=== PATIENT | female | born 1955 | race Caucasian/White ===

== ENCOUNTER → 2018-10-18 | Day surgery (SDC) | payer OTHER ==
[~2018-10-18] MED LIST: CHOL100013 PO; CYAN10005 PO; FOLI1TAB16 PO; HYDROmorphone 2 MG/ML VIAL IV PRN; Hydrocodone/Acetaminophen PO; IV RINGERS,LACTATED 1000ML 1,000 ML IV SCH; LIDOCAINE 2% PF 5 ML VIAL. ONE; LISI1TAB7 PO; MORPHINE SULFATE 2 MG/ML VIAL. IV PRN; OMEP20CA10 PO; ONDANSETRON PF 4 MG/2 ML VIAL. IV PRN; PROCHLORPERAZINE 10 MG/2 ML VIAL. IV PRN; PROPOFOL 160 ML IV ONE; SERTRALINE HCL PO; SUCR1TAB35 PO; fentaNYL PF VIAL 100 MCG/2 ML VIAL IV PRN
[2018-10-18 13:03] VITALS: BP 108/60
--- NOTE | 2018-10-19 13:09 | PATHOLOGY ---
[facility] Accession Number: [id number] . 01 Material submitted: . PART A: stomach - GASTRIC BIOPSY PART B: esophagus - GE JUNCTION BIOPSY . 01 Clinical history: . Pre-OP DX: CRC screening, anemia Post-OP DX: See Dr. morales . 02 Diagnosis: A. Gastric biopsies: - Mild superficial chronic gastritis. . B. Gastroesophageal junction biopsies: - Segments of esophagogastric and gastric mucosa showing mild to moderate chronic inflammation and focal gastric foveolar hyperplasia. (JPM:[facility] 10/19/2018) [facility]/10/19/2018 . 02 Comment: Sections of the gastric biopsy reveal segments of gastric body mucosa showing congestion and mild superficial chronic inflammation. A properly controlled immunoperoxidase stain for Helicobacter is negative for Helicobacter organisms. . Sections of the gastroesophageal junction biopsy reveal segments of esophagogastric and gastric mucosa showing mild to moderate chronic inflammation and focal gastric foveolar hyperplasia. The squamous esophageal mucosa is hyperplastic consistent with reflux changes. There is no evidence of Barber's change, dysplasia or malignancy. (JPM:[facility] 10/19/2018) . Special stain performed: Immunoperoxidase on A1. . 02 Electronically signed: . Pedro Luis Aparicio MD, Pathologist NPI- [id number] . 01 Gross description: . A. Received in formalin labeled "Vamsi, Tesha, gastric BX," are 2 segments of hamm soft tissue measuring 0.8 x 0.1 x 0.1 cm in aggregate dimensions and ranging from 0.2 to 0.6 cm in maximum dimension. The specimen is submitted entirely in cassette A1. . B. Received in formalin labeled "Vamsi, Tesha, GE junction BX," are 4 segments of hamm soft tissue measuring 0.8 x 0.6 x 0.2 cm in aggregate dimensions and ranging from 0.2 to 0.4 cm in maximum dimension. The specimen is submitted entirely in cassette B1. ([facility]; 10/18/2018) TOB/TOB . 02 Pathologist provided ICD-10: K29.30, D64.9 . 02 CPT . 845267, 241701, V72168 Specimen Comment: A courtesy copy of this report has been sent to Specimen Comment: [phone], . Specimen Comment: Report sent to / DR AWAD Performed at: [address], [place] [id number] MD Zaid Middleton MD Phone: [phone] Performed at: [address] [id number] MD Pedro Luis Aparicio MD Phone: [phone]
== END | disposition home or self-care (01) ==
LOC: ENDOS 10:20
PROVIDERS: ATTEND Internal Medicine
DX: K57.30 Diverticulosis of large intestine without perforation or abscess without bleeding (principal); K64.0 First degree hemorrhoids; K64.4 Residual hemorrhoidal skin tags; K22.2 Esophageal obstruction; K29.30 Chronic superficial gastritis without bleeding; K22.8 Other specified diseases of esophagus; D50.0 Iron deficiency anemia secondary to blood loss (chronic); G47.33 Obstructive sleep apnea (adult) (pediatric); I10 Essential (primary) hypertension; M19.90 Unspecified osteoarthritis, unspecified site; K21.9 Gastro-esophageal reflux disease without esophagitis; G25.81 Restless legs syndrome; Z86.711 Personal history of pulmonary embolism; Z90.49 Acquired absence of other specified parts of digestive tract; Z98.84 Bariatric surgery status; E66.9 Obesity, unspecified; F32.9 Major depressive disorder, single episode, unspecified; Z87.11 Personal history of peptic ulcer disease; Z79.899 Other long term (current) drug therapy; Z68.42 Body mass index [BMI] 45.0-49.9, adult
CPT/HCPCS: 43239; 43249; 45378; 88305; 88342; J2001; J2704; 43450

== ENCOUNTER 2018-10-25 15:34 | Emergency (ER) | payer OTHER ==
[~2018-10-25] VITALS: Ht 154.9 cm; Wt 106.6 kg
[~2018-10-25 15:34] MED LIST changes: -HYDROmorphone 2 MG/ML VIAL IV PRN; -IV RINGERS,LACTATED 1000ML 1,000 ML IV SCH; -LIDOCAINE 2% PF 5 ML VIAL. ONE; -MORPHINE SULFATE 2 MG/ML VIAL. IV PRN; -ONDANSETRON PF 4 MG/2 ML VIAL. IV PRN; -PROCHLORPERAZINE 10 MG/2 ML VIAL. IV PRN; -PROPOFOL 160 ML IV ONE; -fentaNYL PF VIAL 100 MCG/2 ML VIAL IV PRN
[2018-10-25 16:24] LABS: BILIRUBIN,URINE NEGATIVE (NEG); CLARITY,URINE CLEAR; COLOR,URINE YELLOW; NITRITE,URINE NEGATIVE (NEG); PROTEIN,URINE NEGATIVE (NEG-TRACE)
--- NOTE | 2018-10-25 16:51 | PHYS DOC ---
Past Medical History Past Medical History: Hypertension, Other Additional Past Medical Histor: macular degeneration, ESOPHAGEAL STRICTURE (PASQUALE JACKSON APRN) Past Surgical History: Other Additional Past Surgical Histo: gastric bypass (PASQUALE JACKSON APRN) Alcohol Use: Occasionally Drug Use: None (PASQUALE JACKSON APRN) Adult General Chief Complaint Chief Complaint: HEMATEMESIS/VOMITING BLOOD HPI HPI 63 y/o female presents via POV for c/o N/V and abd spasms. She reports this morning around 10 AM she started having coffee ground emesis. Patient states since Wednesday she has had gradual worsening of symptoms. Patient states she had an EGD and colonoscopy 1 week ago at [place] [facility] by Dr. Scot WORTHY and she's had previous esophageal strictures due to prior Adam-en-Y surgery more than 10 years ago. Patient states she has had multiple stretching's but this time he had difficulty getting the stricture to stretch. She did have polyps biopsied as well. Patient states she felt fine following that EGD and had even work the end of last week. Patient states she's had decreased appetite since Wednesday and has not been able to take her prescribed Carafate and Prilosec. Patient states she's had minimal fluid intake as well. She denies chest pain or shortness of air. She denies fever, dizziness, or urinary symptoms. (PASQUALE JACKSON APRN) Review of Systems Review of Systems Constitutional: Denies fever or chills [] Eyes: Denies change in visual acuity, redness, or eye pain [] HENT: Denies nasal congestion or sore throat [] Respiratory: Denies cough or shortness of breath [] Cardiovascular: Denies CP GI: Denies bloody stools or diarrhea. Reports intermittent N/V w/abd spasms- denies abd pain currently : Denies dysuria or hematuria [] Musculoskeletal: Denies back pain or joint pain [] Integument: Denies rash or skin lesions [] Neurologic: Denies headache, focal weakness or sensory changes. Denies dizziness Endocrine: Denies polyuria or polydipsia [] All other systems were reviewed and found to be within normal limits, except as documented in this note. (PASQUALE JACKSON APRN) Current Medications Current Medications Current Medications Medications (Trade) Dose Ordered Sig/Alberto Start Time Stop Time Status Last Admin Dose Admin Info (CONTRAST GIVEN -- Rx MONITORING) 1 each PRN DAILY PRN 10/25/18 18:00 10/25/18 21:16 DC Iohexol (Omnipaque 300 Mg/ml) 100 ml STK-MED ONCE 10/25/18 17:56 10/25/18 17:57 DC Ondansetron HCl (Zofran) 4 mg 1X ONCE 10/25/18 17:15 10/25/18 17:16 DC 10/25/18 16:53 4 MG Sodium Chloride 1,000 ml @ 1,000 mls/hr 1X ONCE 10/25/18 17:15 10/25/18 18:14 DC 10/25/18 16:51 1,000 MLS/HR (PARDEEP BEE MD) Allergies Allergies Allergies Coded Allergies Type Severity Reaction Last Updated Verified No Known Drug Allergies 10/18/18 No (PARDEEP BEE MD) Physical Exam Physical Exam Constitutional: Well developed, well nourished, no acute distress, non-toxic appearance. [] HENT: Normocephalic, atraumatic, oropharynx moist, no oral exudates, nose normal. [] Eyes: Pupils equal, conjunctiva normal, no discharge. [] Neck: Normal range of motion, no tenderness, supple, no stridor. [] Cardiovascular: Heart rate regular rhythm, no murmur [] Lungs & Thorax: Bilateral breath sounds clear to auscultation- resp. equal/nonlabored Abdomen: Hypoactic bowel sounds normal, soft, no tenderness, no masses, no pulsatile masses. [] Skin: Warm, dry, no erythema, no rash. [] Back: No tenderness, no CVA tenderness. [] Extremities: No tenderness, no cyanosis, no clubbing, ROM intact, 2+ bilat. pedal- reports chronic no acute changes. Neurologic: Alert and oriented X 3, normal motor function, normal sensory function, no focal deficits noted. [] Psychologic: Affect normal, judgement normal, mood normal. [] (REFFITT,PASQUALE Benton APRN) Current Patient Data Vital Signs Vital Signs Date Time Temp Pulse Resp B/P (MAP) Pulse Ox O2 Delivery O2 Flow Rate FiO2 10/25/18 20:00 90 22 142/80 (100) 96 Room Air 10/25/18 16:07 98.4 98.4 (PARDEEP BEE MD) Lab Values Laboratory Tests Test 10/25/18 16:10 10/25/18 16:30 10/25/18 17:10 Urine Collection Type Void Urine Color Yellow Urine Clarity Clear Urine pH 6.0 Urine Specific [place] 1.020 Urine Protein Negative mg/dL (NEG-TRACE) Urine Glucose (UA) Negative mg/dL (NEG) Urine Ketones (Stick) Negative mg/dL (NEG) Urine Blood Negative (NEG) Urine Nitrite Negative (NEG) Urine Bilirubin Negative (NEG) Urine Urobilinogen Dipstick 1.0 mg/dL (0.2 mg/dL) Urine Leukocyte Esterase Small (NEG) Urine RBC 1-2 /HPF (0-2) Urine WBC 1-4 /HPF (0-4) Urine Squamous Epithelial Cells Few /LPF Urine Bacteria Many /HPF (0-FEW) Urine Hyaline Casts Few /HPF Urine Mucus Mod /LPF White Blood Count 11.2 x10^3/uL (4.0-11.0) H Red Blood Count 4.98 x10^6/uL (3.50-5.40) Hemoglobin 13.9 g/dL (12.0-15.5) Hematocrit 42.4 % (36.0-47.0) Mean Corpuscular Volume 85 fL (79-100) Mean Corpuscular Hemoglobin 28 pg (25-35) Mean Corpuscular Hemoglobin Concent 33 g/dL (31-37) Red Cell Distribution Width 15.4 % (11.5-14.5) H Platelet Count 315 x10^3/uL (140-400) Neutrophils (%) (Auto) 81 % (31-73) H Lymphocytes (%) (Auto) 13 % (24-48) L Monocytes (%) (Auto) 5 % (0-9) Eosinophils (%) (Auto) 1 % (0-3) Basophils (%) (Auto) 0 % (0-3) Neutrophils # (Auto) 9.1 x10^3uL (1.8-7.7) H Lymphocytes # (Auto) 1.4 x10^3/uL (1.0-4.8) Monocytes # (Auto) 0.5 x10^3/uL (0.0-1.1) Eosinophils # (Auto) 0.1 x10^3/uL (0.0-0.7) Basophils # (Auto) 0.0 x10^3/uL (0.0-0.2) Lactic Acid Level 0.8 mmol/L (0.4-2.0) Sodium Level 142 mmol/L (136-145) Potassium Level 3.7 mmol/L (3.5-5.1) Chloride Level 103 mmol/L (98-107) Carbon Dioxide Level 29 mmol/L (21-32) Anion Gap 10 (6-14) Blood Urea Nitrogen 16 mg/dL (7-20) Creatinine 0.8 mg/dL (0.6-1.0) Estimated GFR (Cockcroft-Gault) 72.7 BUN/Creatinine Ratio 20 (6-20) Glucose Level 97 mg/dL (70-99) Calcium Level 8.7 mg/dL (8.5-10.1) Magnesium Level 2.0 mg/dL (1.8-2.4) Total Bilirubin 0.5 mg/dL (0.2-1.0) Aspartate Amino Transferase (AST) 16 U/L (15-37) Alanine Aminotransferase (ALT) 16 U/L (14-59) Alkaline Phosphatase 79 U/L (46-116) Troponin I Quantitative < 0.017 ng/mL (0.000-0.055) Total Protein 7.1 g/dL (6.4-8.2) Albumin 3.4 g/dL (3.4-5.0) Albumin/Globulin Ratio 0.9 (1.0-1.7) L Lipase 130 U/L (73-393) Laboratory Tests 10/25/18 16:30 Laboratory Tests 10/25/18 17:10 Microbiology 10/25/18 Urine Culture - Final, Complete 10/25/18 Urine Culture Result 1 (JEFF) - Final, Complete 10/25/18 Antimicrobic Susceptibility - Final, Complete (PARDEEP BEE MD) Lab Values Laboratory Tests Test 10/25/18 16:10 10/25/18 16:30 10/25/18 17:10 Urine Collection Type Void Urine Color Yellow Urine Clarity Clear Urine pH 6.0 Urine Specific [place] 1.020 Urine Protein Negative mg/dL (NEG-TRACE) Urine Glucose (UA) Negative mg/dL (NEG) Urine Ketones (Stick) Negative mg/dL (NEG) Urine Blood Negative (NEG) Urine Nitrite Negative (NEG) Urine Bilirubin Negative (NEG) Urine Urobilinogen Dipstick 1.0 mg/dL (0.2 mg/dL) Urine Leukocyte Esterase Small (NEG) Urine RBC 1-2 /HPF (0-2) Urine WBC 1-4 /HPF (0-4) Urine Squamous Epithelial Cells Few /LPF Urine Bacteria Many /HPF (0-FEW) Urine Hyaline Casts Few /HPF Urine Mucus Mod /LPF White Blood Count 11.2 x10^3/uL (4.0-11.0) H Red Blood Count 4.98 x10^6/uL (3.50-5.40) Hemoglobin 13.9 g/dL (12.0-15.5) Hematocrit 42.4 % (36.0-47.0) Mean Corpuscular Volume 85 fL (79-100) Mean Corpuscular Hemoglobin 28 pg (25-35) Mean Corpuscular Hemoglobin Concent 33 g/dL (31-37) Red Cell Distribution Width 15.4 % (11.5-14.5) H Platelet Count 315 x10^3/uL (140-400) Neutrophils (%) (Auto) 81 % (31-73) H Lymphocytes (%) (Auto) 13 % (24-48) L Monocytes (%) (Auto) 5 % (0-9) Eosinophils (%) (Auto) 1 % (0-3) Basophils (%) (Auto) 0 % (0-3) Neutrophils # (Auto) 9.1 x10^3uL (1.8-7.7) H Lymphocytes # (Auto) 1.4 x10^3/uL (1.0-4.8) Monocytes # (Auto) 0.5 x10^3/uL (0.0-1.1) Eosinophils # (Auto) 0.1 x10^3/uL (0.0-0.7) Basophils # (Auto) 0.0 x10^3/uL (0.0-0.2) Lactic Acid Level 0.8 mmol/L (0.4-2.0) Sodium Level 142 mmol/L (136-145) Potassium Level 3.7 mmol/L (3.5-5.1) Chloride Level 103 mmol/L (98-107) Carbon Dioxide Level 29 mmol/L (21-32) Anion Gap 10 (6-14) Blood Urea Nitrogen 16 mg/dL (7-20) Creatinine 0.8 mg/dL (0.6-1.0) Estimated GFR (Cockcroft-Gault) 72.7 BUN/Creatinine Ratio 20 (6-20) Glucose Level 97 mg/dL (70-99) Calcium Level 8.7 mg/dL (8.5-10.1) Magnesium Level 2.0 mg/dL (1.8-2.4) Total Bilirubin 0.5 mg/dL (0.2-1.0) Aspartate Amino Transferase (AST) 16 U/L (15-37) Alanine Aminotransferase (ALT) 16 U/L (14-59) Alkaline Phosphatase 79 U/L (46-116) Troponin I Quantitative < 0.017 ng/mL (0.000-0.055) Total Protein 7.1 g/dL (6.4-8.2) Albumin 3.4 g/dL (3.4-5.0) Albumin/Globulin Ratio 0.9 (1.0-1.7) L Lipase 130 U/L (73-393) Laboratory Tests 10/25/18 16:30 Laboratory Tests 10/25/18 17:10 (PASQUALE JACKSON APRN) EKG EKG EKG obtained 10/25/18 at [address] Bee Sinus rhythm Ltward axis Rate 68 No STEMI (PASQUALE JACKSON APRN) Radiology/Procedures Radiology/Procedures []PROCEDURE: CT ABD PELV W/ IV CONTRST ONLY CT scan of the abdomen and pelvis with contrast 10/25/2018 CLINICAL HISTORY: Nausea and vomiting. Recent EGD. History of abdominal surgery with Adam-en-Y anastomosis. TECHNIQUE: After the intravenous administration of 75 cc of Omnipaque 300 only, contiguous, 5 mm axial sections were obtained through abdomen and pelvis. One or more of the following individualized dose reduction techniques were utilized for this study: 1. Automated exposure control. 2. Adjustment of the mA and/or kV according to patient size. 3. Use of iterative reconstruction technique. FINDINGS: Images through the lung bases demonstrate minimal dependent subsegmental atelectasis bilaterally. The liver, spleen, pancreas, and adrenal glands are within normal limits. Rounded low-attenuation lesions are seen involving both kidneys which likely represent cysts. These measure 5 mm to 2.5 cm in size. Nonobstructing right renal calculi are seen involving the lower pole the right kidney. These measure 2 mm to 8 mm in size. Mild atherosclerotic calcification of the abdominal aorta and its branches is seen. The abdominal aorta is tortuous but tapers normally. Surgical clips are seen within the gallbladder fossa consistent with a cholecystectomy. Surgical changes are seen involving the stomach. Bowel anastomoses are seen within the upper abdomen. No free fluid or free air is seen within the abdomen. There is no evidence of bowel obstruction. Images through the pelvis demonstrate the urinary bladder to be contracted. Calcifications are seen within the pelvis consistent with phleboliths. No free fluid is seen. Mild S-shaped curvature of the thoracolumbar spine is seen. Degenerative changes are seen involving the lower thoracic and throughout the lumbar spine and both hips. IMPRESSION: No acute abnormality is seen. Electronically signed by: Garrett Myles MD (10/25/2018 6:58 PM) [facility] DICTATED and SIGNED BY: GARRETT MYLES MD DATE: 10/25/181857 (PASQUALE JACKSON APRN) Course & Med Decision Making Course & Med Decision Making Pertinent Labs and Imaging studies reviewed. (See chart for details) 193: Discussed test results with pt- CT abd/pelvis with no acute findings. Pt reports she is feeling much better ongoing IV fluids and dose of Zofran. Patient states since arriving she did have 1 small episode of coffee ground emesis-she is denying any nausea or vomiting. Patient states she is feeling much better and is ready to be discharged in the ER with plans to call her GI doctor tomorrow and discuss her ER visit. Patient is nontoxic in appearance. Patient's H&H was stable.Education provided on signs and symptoms to return to ER. Discharge instructions were discussed. Patient to follow-up with primary care physician if symptoms persist or with any concerns. (PASQUALE JACKSON APRN) Course & Med Decision Making This patient was seen by ALVARO. I did not see or evaluate the pt unless otherwise specified but I was available for consultation. (PARDEEP BEE MD) Dragon Disclaimer Dragon Disclaimer This electronic medical record was generated, in whole or in part, using a voice recognition dictation system. (PASQUALE JACKSON APRN) Departure Departure Impression: Primary Impression: Abdominal pain Disposition: HOME, SELF-CARE Condition: STABLE Referrals: RODRIGUE AWAD MD (PCP) Patient Instructions: Abdominal Pain, Nausea and Vomiting Additional Instructions: Home medications as prescribed. Call and discuss your Emergency Department visit with your gastrointestinal doctor tomorrow. If symptoms worsen tonight or with concerns return to the emergency department for reevaluation and further care. PASQUALE JACKSON APRN October 25, 2018 16:51 PARDEEP BEE MD November 04, 2018 20:50
[2018-10-25 17:01] LABS: BASO % 0 % (0-3); EOS # 0.1 x10^3/uL (0.0-0.7); EOS % 1 % (0-3); HEMATOCRIT 42.4 % (36.0-47.0); HEMOGLOBIN 13.9 g/dL (12.0-15.5); LYMPH # 1.4 x10^3/uL (1.0-4.8); LYMPH % 13 % (24-48); MEAN CORPUSCULAR HEMOGLOBIN 28 pg (25-35); MEAN CORPUSCULAR HGB CONC 33 g/dL (31-37); MEAN CORPUSCULAR VOLUME 85 fL (79-100); MONO # 0.5 x10^3/uL (0.0-1.1); MONO % 5 % (0-9); NEUT # 9.1 x10^3uL (1.8-7.7); NEUT % 81 % (31-73); PLATELET COUNT 315 x10^3/uL (140-400); RED BLOOD COUNT 4.98 x10^6/uL (3.50-5.40); RED CELL DISTRIBUTION WIDTH 15.4 % (11.5-14.5); WHITE BLOOD COUNT 11.2 x10^3/uL (4.0-11.0)
[2018-10-25 17:13] LABS: BACTERIA,URINE MANY /HPF (0-FEW); SQUAMOUS EPITHELIAL CELL,UR FEW /LPF
[2018-10-25 17:14] LABS: HYALINE CASTS, URINE FEW /HPF
[2018-10-25] MEDS ORDERED: IV NORMAL SALINE 1000ML BAG 1,000 ML IV ONE (17:15)
[2018-10-25] MEDS ORDERED: ONDANSETRON PF 4 MG/2 ML VIAL. IV ONE (17:15)
[2018-10-25 17:47] LABS: ALBUMIN 3.4 g/dL (3.4-5.0); ALBUMIN/GLOBULIN RATIO 0.9 (1.0-1.7); CALCIUM 8.7 mg/dL (8.5-10.1); CREATININE 0.8 mg/dL (0.6-1.0); GFR 72.7; POTASSIUM 3.7 mmol/L (3.5-5.1); TOTAL BILIRUBIN 0.5 mg/dL (0.2-1.0); TOTAL PROTEIN 7.1 g/dL (6.4-8.2)
[2018-10-25] MEDS ORDERED: IOHEXOL 300 MG/ML 100ML VIAL. ONE (17:56)
[2018-10-25] MEDS ORDERED: CONTRAST GIVEN. MC PRN (18:00)
[2018-10-25] MEDS ORDERED: IOHEXOL 300 MG/ML 100ML VIAL. IV ONE (18:15)
--- NOTE | 2018-10-25 19:01 | RAD ---
CT scan of the abdomen and pelvis with contrast 10/25/2018 CLINICAL HISTORY: Nausea and vomiting. Recent EGD. History of abdominal surgery with Adam-en-Y anastomosis. TECHNIQUE: After the intravenous administration of 75 cc of Omnipaque 300 only, contiguous, 5 mm axial sections were obtained through abdomen and pelvis. One or more of the following individualized dose reduction techniques were utilized for this study: 1. Automated exposure control. 2. Adjustment of the mA and/or kV according to patient size. 3. Use of iterative reconstruction technique. FINDINGS: Images through the lung bases demonstrate minimal dependent subsegmental atelectasis bilaterally. The liver, spleen, pancreas, and adrenal glands are within normal limits. Rounded low-attenuation lesions are seen involving both kidneys which likely represent cysts. These measure 5 mm to 2.5 cm in size. Nonobstructing right renal calculi are seen involving the lower pole the right kidney. These measure 2 mm to 8 mm in size. Mild atherosclerotic calcification of the abdominal aorta and its branches is seen. The abdominal aorta is tortuous but tapers normally. Surgical clips are seen within the gallbladder fossa consistent with a cholecystectomy. Surgical changes are seen involving the stomach. Bowel anastomoses are seen within the upper abdomen. No free fluid or free air is seen within the abdomen. There is no evidence of bowel obstruction. Images through the pelvis demonstrate the urinary bladder to be contracted. Calcifications are seen within the pelvis consistent with phleboliths. No free fluid is seen. Mild S-shaped curvature of the thoracolumbar spine is seen. Degenerative changes are seen involving the lower thoracic and throughout the lumbar spine and both hips. IMPRESSION: No acute abnormality is seen. Electronically signed by: Garrett Myles MD (10/25/2018 6:58 PM) [facility]
[2018-10-25 20:00] VITALS: BP 142/80
--- NOTE | 2018-10-26 06:29 | EKG ---
[facility] [address] [place] [address] Test Date: 2018-10-25 Test Time: 17:41:08 Pat Name: BHASKAR PAIZ Department: Room: Gender: F Marketing Assistant: : 1955 Requested By: PASQUALE JACKSON Order Number: [id number] Reading MD: Catarino Escobar Measurements Intervals Miles Rate: 68 P: 30 MT: 190 QRS: -3 QRSD: 80 T: 36 QT: 384 QTc: 409 Interpretive Statements SINUS RHYTHM LEFTWARD AXIS Electronically Signed On 11-18-2018 11:55:02 CDT by Catarino Escobar
== END 2018-10-25 20:05 | disposition home or self-care (01) ==
LOC: ER 15:34
DX: R10.9 Unspecified abdominal pain (principal); R11.2 Nausea with vomiting, unspecified; R25.2 Cramp and spasm; R63.0 Anorexia; I10 Essential (primary) hypertension; Z98.84 Bariatric surgery status
CPT/HCPCS: 36415; 74177; 80053; 81001; 83605; 83690; 83735; 84484; 85025; 87086; 93005; 96361; 96374; 99285; J2405; J7030; Q9967; 87186

== ENCOUNTER → 2019-02-02 | Day surgery (SDC) | payer OTHER ==
[~2019-02-02] MED LIST changes: +CYAN-25 PO; -CYAN10005 PO; +HYDROmorphone 2 MG/ML VIAL IV PRN; +IV RINGERS,LACTATED 1000ML 1,000 ML IV SCH; +LIDOCAINE 1% PF 2 ML VIAL. ID PRN; +LIDOCAINE 2% PF 5 ML VIAL. ONE; +LISI1TAB20 PO; -LISI1TAB7 PO; +MORPHINE SULFATE 2 MG/ML VIAL. IV PRN; +OMEP40CA5 PO; +ONDANSETRON PF 4 MG/2 ML VIAL. IV PRN; +PROCHLORPERAZINE 10 MG/2 ML VIAL. IV PRN; +PROPOFOL 20 ML IV ONE; +PROPOFOL 80 ML IV ONE; +fentaNYL PF VIAL 100 MCG/2 ML VIAL IV PRN
--- NOTE | 2019-02-02 10:10 | PREOP HP ---
DATE OF SERVICE: 02/02/2019 REQUESTING PHYSICIAN: Carlos Orozco MD PRIMARY CARE PHYSICIAN: Carlos Orozco MD REASON FOR PROCEDURE: Gastrojejunal stricture and colon cancer screening. HISTORY OF PRESENT ILLNESS: This is a 63-year-old female who presents today for followup of her gastrojejunal stricture as well as colon cancer screening. ALLERGIES: No known drug allergies. MEDICATIONS: She is takin. Trazodone. 2. Zofran. 3. Sertraline. 4. Omeprazole. 5. Carafate. REVIEW OF SYSTEMS: A 13-point review of systems was done and is positive as per HPI, otherwise negative. PHYSICAL EXAMINATION: VITAL SIGNS: She is afebrile and her vital signs are stable. GENERAL: She is an obese female, in no apparent distress. HEENT: Oropharynx is clear. CARDIOVASCULAR: S1, S2. LUNGS: Clear. ABDOMEN: Normoactive bowel sounds, soft, nontender, nondistended. EXTREMITIES: No edema. NEUROLOGIC: Awake, alert and oriented x 3. ASSESSMENT AND PLAN: 1. Iron deficiency anemia. 2. Gastroduodenal stricture. 3. Colon cancer screening. The risks and benefits of the upper and lower endoscopy were explained and she has agreed to proceed. Thank you for allowing me to participate in the care of this patient. RANDAL MURGUIA MD DR: ELEAZAR/naz JOB#: [id number] / [id number]
[2019-02-02 10:12] VITALS: BP 101/63
== END ==
LOC: SURG 08:14
PROVIDERS: ATTEND Internal Medicine Gastroenterology
DX: K61.2 Anorectal abscess (principal); K22.2 Esophageal obstruction; K21.0 Gastro-esophageal reflux disease with esophagitis; K64.0 First degree hemorrhoids; Z98.0 Intestinal bypass and anastomosis status
CPT/HCPCS: 43239; 43249; 45380; 88305; J2001; J2704; 43233

== ENCOUNTER 2021-07-16 12:23 | Emergency (ER) | payer MEDICARE, OTHER ==
[~2021-07-16] VITALS: Ht 154.9 cm; Wt 91.8 kg
[~2021-07-16 12:23] MED LIST changes: -HYDROmorphone 2 MG/ML VIAL IV PRN; -IV RINGERS,LACTATED 1000ML 1,000 ML IV SCH; -LIDOCAINE 1% PF 2 ML VIAL. ID PRN; -LIDOCAINE 2% PF 5 ML VIAL. ONE; -LISI1TAB20 PO; +LISI1TAB39 PO; -MORPHINE SULFATE 2 MG/ML VIAL. IV PRN; -OMEP20CA10 PO; +OMEP20CA16 PO; -OMEP40CA5 PO; +OMEP40CA7 PO; -ONDANSETRON PF 4 MG/2 ML VIAL. IV PRN; -PROCHLORPERAZINE 10 MG/2 ML VIAL. IV PRN; -PROPOFOL 20 ML IV ONE; -PROPOFOL 80 ML IV ONE; -fentaNYL PF VIAL 100 MCG/2 ML VIAL IV PRN
--- NOTE | 2021-07-16 12:28 | PHYS DOC ---
Past Medical History Past Medical History: Hypertension, Other Additional Past Medical Histor: macular degeneration, ESOPHAGEAL STRICTURE, PE Past Surgical History: Cholecystectomy, Other Additional Past Surgical Histo: gastric bypass Smoking Status: Never Smoker Alcohol Use: Occasionally Drug Use: None General Adult EDM: Chief Complaint: NAUSEA/VOMITING/DIARRHEA HPI: HPI: Patient is a 66-year-old female presenting to the emergency department with a chief complaint of nausea vomiting and diarrhea x3 days. Patient describes normal-appearing vomit nothing appears to make her symptoms better or worse. Patient complains of mild shortness of breath and pleuritic chest pain associated with her current symptoms, denies any radiation or severity. Patient states that she has recently been trying to lose weight and believes that these symptoms are related to her previous esophageal stricture. Denies leg swelling or calf tenderness. Reports history of PE but is currently not taking any blood thinners. Denies trauma. Denies fever/chills. Denies known exposure to COVID- 19. Review of Systems: Review of Systems: Constitutional: Denies fever or chills Eyes: Denies redness or eye pain HENT: Denies nasal congestion or sore throat Respiratory: Denies cough, complains of shortness of breath Cardiovascular: Denies palpitations; reports pleuritic chest pain GI: complains of nausea, vomiting, diarrhea : Denies dysuria or hematuria Musculoskeletal: Denies back pain or joint pain Integument: Denies rash or skin lesions Neurologic: Denies headache, focal weakness or sensory changes Complete systems were reviewed and found to be within normal limits, except as documented in this note. Heart Score: C/O Chest Pain: Yes HEART Score for Chest Pain: HEART Score for Chest Pain Response (Comments) Value History Slighlty/Non-Suspicious 0 ECG Normal 0 Age >45 - < 65 1 Risk Factors 1 or 2 Risk Factors 1 Troponin < Normal Limit 0 Total 2 Risk Factors: Risk Factors: DM, Current or recent (<one month) smoker, HTN, HLP, family history of CAD, obesity. Risk Scores: Score 0 - 3: 2.5% MACE over next 6 weeks - Discharge Home Score 4 - 6: 20.3% MACE over next 6 weeks - Admit for Clinical Observation Score 7 - 10: 72.7% MACE over next 6 weeks - Early Invasive Strategies Allergies: Allergies: Allergies Coded Allergies Type Severity Reaction Last Updated Verified No Known Drug Allergies 02/02/19 No Physical Exam: PE: Constitutional: Well developed, well nourished, no acute distress, non-toxic appearance HENT: Normocephalic, atraumatic Eyes: conjunctiva normal, no discharge Neck: Normal range of motion, no tenderness, supple Lungs & Thorax: No respiratory distress, equal chest rise and fall, CTAB Abdomen: Soft, no tenderness. complains of pain in epigastric region Skin: Warm, dry, no erythema, no rash Back: No tenderness, no CVA tenderness Extremities: No tenderness, ROM intact, no edema Neurologic: Alert and oriented X 3, normal motor function, normal sensory function, no focal deficits noted Psychologic: Affect normal, judgment normal EKG: EKG: @1326 HR 109, Sinus tachycardia, normal rhythm. NO ST SEGMENT ELEVATION. QT/QTc 330/446. Radiology/Procedures: Radiology/Procedures: PROCEDURE: CT ANGIO CHEST W ABD PEL W/ EXAMINATION: CTA chest, abdomen and pelvis with IV contrast. INDICATION:66 years, Female, Chest pain. Nausea and vomiting. TECHNIQUE: Axial CTA images of the chest, abdomen and pelvis were obtained. MIP coronal and sagittal reformatted of the chest. Coronal and sagittal reformatted performed for the abdomen and pelvis. COMPARISON: 10/25/2018. Exposure: One or more of the following individualized dose reduction techniques were utilized for this examination: 1. Automated exposure control 2. Adjustment of the mA and/or kV according to patient size 3. Use of iterative reconstruction technique. FINDINGS: VASCULAR: Normal caliber pulmonary arteries. No filling defect in the pulmonary arteries to suggest pulmonary embolism. Thoracic aorta is normal in caliber, demonstrates mild atherosclerotic calcifications, without significant stenosis. No aortic dissection. Classic anatomy of the aortic arch with patent visualized great vessels. Patent with normal caliber abdominal aorta, bilateral iliac and common femoral arteries, without significant stenosis. IVC and iliac veins are unremarkable. Celiac trunk, SMA, JA, and bilateral renal arteries are patent. However, atherosclerotic calcifications at the SMA origin, causing moderate luminal stenosis. NONVASCULAR: CHEST: Visualized thyroid and esophagus are unremarkable. Small hiatal hernia. No lymphadenopathy in the chest by size criteria. Normal cardiac size with no pericardial effusion. No significant coronary artery atherosclerotic changes. Central airways are patent. No pleural effusion or pneumothorax. Patchy areas of groundglass opacities in both lower and right middle lobes. Dependent sub segmental atelectasis in bibasilar lungs. ABDOMEN/PELVIS: Normal size and morphology of the liver with homogeneous enhancement. No suspicious focal hepatic lesion. Cholecystectomy. No biliary ductal dilation. Unremarkable spleen. Diffuse atrophic pancreas. No adrenal nodule. No hydronephrosis in either kidney. Simple and mildly complex bilateral renal cysts; the largest simple cyst in the lower pole right kidney measures 3.4 cm. The mildly complex cyst in the right kidney measures 2.3 cm, demonstrates pun ctate calcifications suggesting of Bosniak type II cyst. Additional, subcentimeter hypodensities in the right renal cortex, too small to characterize. Post Adam-en-Y gastric bypass changes. No bowel dilation. Few colonic diverticulosis without acute diverticulitis. Appendix is not seen with certainty. Minimal mesenteric swirling in the left abdomen. No lymphadenopathy. No pneumoperitoneum or ascites. Unremarkable urinary bladder and uterus. No suspicious pelvic masses. MUSCULOSKELETAL STRUCTURES: No acute osseous process. Multilevel changes in the thoracolumbar spine spine. IMPRESSION: 1. No evidence of pulmonary embolism. 2. Patchy areas of groundglass opacities in the right middle lobe and both lower lobes suspicious for atypical pneumonia. 3. No acute abnormality in the abdomen or pelvis. 4. Post Adam-en-Y gastric bypass changes. No evidence of obstruction. 5. Minimal mesenteric swirling in the left abdomen could be due to internal nonobstructed hernia. 6. Other chronic/incidental findings, as described above. Electronically signed by: Kalie Townsend MD (07/16/2021 2:35 PM) [facility] Course & Med Decision Making: Course & Med Decision Making Pertinent Labs and Imaging studies reviewed. (See chart for details) Patient is a 66 year old woman presenting to the emergency department with a chief complaint of nausea, vomiting an occasional diarrhea x 3 days. Also reports some SOA and pleuritic pain. Reports history of PE in the past. Denies trauma. Denies leg swelling. Patient states that she believes her symptoms are related to her previous history of esophageal stricture. Dehydration and nausea addressed with normal saline and Zofran. Labs obtained and posted to chart. Troponin WNL. EKG stable. LFT/lipase WNL. CTA chest and CT abd/pelvis obtained with signs concerning for atypical pneumonia. UA also with signs of acute UTI. Empiric antibiotics given. Rapid influenza and COVID negative. COVID PCR pending. Patient stable for discharge with outpatient follow-up with PCP. Discussed findings and plan with patient, who acknowledges understanding and agreement. COVID-19 CRITERIA: The patient was evaluated during the global COVID-19 pandemic, and that diagnosis was suspected/considered upon their initial presentation. Their evaluation, treatment and testing was consistent with current guidelines for patients who present with complaints or symptoms that may be related to COVID-19. [place] Disclaimer: Dragon Disclaimer: This electronic medical record was generated, in whole or in part, using a voice recognition dictation system. Departure Departure Impression: Primary Impression: Atypical pneumonia Additional Impressions: Nausea & vomiting Qualified Codes: R11.2 - Nausea with vomiting, unspecified Urinary tract infection Qualified Codes: N30.00 - Acute cystitis without hematuria Disposition: HOME / SELF CARE / HOMELESS Condition: STABLE Referrals: RODRIGUE AWAD MD (PCP) Patient Instructions: Clear Liquid Diet, [id number], Nausea and Vomiting, [id number], Pneumonia, Adult, [id number], Urinary Tract Infection, [id number] Scripts Cephalexin (CEPHALEXIN) 500 Mg Tablet 1 TAB PO TID for 7 Days, #21 TAB Prov: MALI CLEMENTE DO 07/16/21 Azithromycin (AZITHROMYCIN TABLET) 250 Mg Tablet 1 PKG PO UD for 5 Days, #6 TAB 0 Refills 2 the first day followed by 1 for days 2-5 Prov: MALI CLEMENTE DO 07/16/21 Ondansetron (ONDANSETRON ODT) 4 Mg Tab.rapdis 1 TAB PO PRN Q6-8HRS PRN for NAUSEA, #16 TAB Prov: MALI CLEMENTE DO 07/16/21 COVID-19 Assessment: COVID-19 Patient Risks: Age 65 or older: Yes Sign of co-morbidity: Yes Exp to person + for COVID: No Exp to PUI: No Travel from affected area: No Lower respiratory symptoms: Yes Fever: No Other: Yes PPE Use: Full PPE with N95 mask or PAPR: Yes MALI CLEMENTE DO Jul 16, 2021 12:28
[2021-07-16] MEDS ORDERED: IV NORMAL SALINE 1000ML BAG 1,000 ML IV ONE (13:00)
[2021-07-16] MEDS ORDERED: FAMOTIDINE 20 MG/2 ML VIAL IVP ONE (13:00)
[2021-07-16] MEDS ORDERED: ONDANSETRON PF 4 MG/2 ML VIAL. IVP ONE (13:00)
[2021-07-16 13:34] LABS: BASO % 0 % (0-3); EOS % 0 % (0-3); LYMPH # 0.6 x10^3/uL (1.0-4.8); LYMPH % 4 % (24-48); MEAN CORPUSCULAR HEMOGLOBIN 28 pg (25-35); MEAN CORPUSCULAR HGB CONC 33 g/dL (31-37); MEAN CORPUSCULAR VOLUME 87 fL (79-100); MONO # 0.6 x10^3/uL (0.0-1.1); MONO % 4 % (0-9); NEUT # 14.5 x10^3/uL (1.8-7.7); NEUT % 92 % (31-73); PLATELET COUNT 254 x10^3/uL (140-400); RED BLOOD COUNT 4.62 x10^6/uL (3.50-5.40); RED CELL DISTRIBUTION WIDTH 13.8 % (11.5-14.5); WHITE BLOOD COUNT 15.8 x10^3/uL (4.0-11.0)
[2021-07-16 13:43] LABS: CALCIUM 8.3 mg/dL (8.5-10.1); CREATININE 0.7 mg/dL (0.6-1.0); POTASSIUM 3.5 mmol/L (3.5-5.1)
[2021-07-16] MEDS ORDERED: IOHEXOL 350 MG/ML 100 ML VIAL. IV ONE (13:45)
[2021-07-16 13:49] LABS: ALBUMIN 3.6 g/dL (3.4-5.0); TOTAL BILIRUBIN 0.8 mg/dL (0.2-1.0); TOTAL PROTEIN 7.2 g/dL (6.4-8.2)
[2021-07-16 13:57] LABS: CREATINE KINASE 65 U/L (26-192)
[2021-07-16] MEDS ORDERED: CONTRAST GIVEN. MC PRN (14:00)
--- NOTE | 2021-07-16 14:37 | RAD ---
EXAMINATION: CTA chest, abdomen and pelvis with IV contrast. INDICATION:66 years, Female, Chest pain. Nausea and vomiting. TECHNIQUE: Axial CTA images of the chest, abdomen and pelvis were obtained. MIP coronal and sagittal reformatted of the chest. Coronal and sagittal reformatted performed for the abdomen and pelvis. COMPARISON: 10/25/2018. Exposure: One or more of the following individualized dose reduction techniques were utilized for thi s examination: 1. Automated exposure control 2. Adjustment of the mA and/or kV according to patient size 3. Use of iterative reconstruction technique. FINDINGS: VASCULAR: Normal caliber pulmonary arteries. No filling defect in the pulmonary arteries to suggest pulmonary e mbolism. Thoracic aorta is normal in caliber, demonstrates mild atherosclerotic calcifications, witho ut significant stenosis. No aortic dissection. Classic anatomy of the aortic arch with patent visuali zed great vessels. Patent with normal caliber abdominal aorta, bilateral iliac and common femoral arteries, without sign ificant stenosis. IVC and iliac veins are unremarkable. Celiac trunk, SMA, JA, and bilateral renal a rteries are patent. However, atherosclerotic calcifications at the SMA origin, causing moderate lumin al stenosis. NONVASCULAR: CHEST: Visualized thyroid and esophagus are unremarkable. Small hiatal hernia. No lymphadenopathy in the elena st by size criteria. Normal cardiac size with no pericardial effusion. No significant coronary artery atherosclerotic changes. Central airways are patent. No pleural effusion or pneumothorax. Patchy areas of groundglass opacitie s in both lower and right middle lobes. Dependent subsegmental atelectasis in bibasilar lungs. ABDOMEN/PELVIS: Normal size and morphology of the liver with homogeneous enhancement. No suspicious focal hepatic les ion. Cholecystectomy. No biliary ductal dilation. Unremarkable spleen. Diffuse atrophic pancreas. No adrenal nodule. No hydronephrosis in either kidney. Simple and mildly complex bilateral renal cysts; the largest simple cyst in the lower pole right kidney measures 3.4 cm. The mildly complex cyst in th e right kidney measures 2.3 cm, demonstrates punctate calcifications suggesting of Bosniak type II cy st. Additional, subcentimeter hypodensities in the right renal cortex, too small to characterize. Post Adam-en-Y gastric bypass changes. No bowel dilation. Few colonic diverticulosis without acute di verticulitis. Appendix is not seen with certainty. Minimal mesenteric swirling in the left abdomen. N o lymphadenopathy. No pneumoperitoneum or ascites. Unremarkable urinary bladder and uterus. No suspic ious pelvic masses. MUSCULOSKELETAL STRUCTURES: No acute osseous process. Multilevel changes in the thoracolumbar spine spine. IMPRESSION: 1. No evidence of pulmonary embolism. 2. Patchy areas of groundglass opacities in the right middle lobe and both lower lobes suspicious fo r atypical pneumonia. 3. No acute abnormality in the abdomen or pelvis. 4. Post Adam-en-Y gastric bypass changes. No evidence of obstruction. 5. Minimal mesenteric swirling in the left abdomen could be due to internal nonobstructed hernia. 6. Other chronic/incidental findings, as described above. Electronically signed by: Kalie Townsend MD (07/16/2021 2:35 PM) [facility]
[2021-07-16 14:49] LABS: % ATYL 1 % (0-0); % BANDS 3 % (0-9); % BASOS 2 % (0-3); % LYMPHS 4 % (24-48); % MONOS 4 % (0-10); % SEGS 86 % (35-66)
[2021-07-16 14:50] LABS: TOXIC GRANULATION SLIGHT
[2021-07-16 14:51] LABS: PLT ESTIMATE ADEQUATE (ADEQUATE)
[2021-07-16] MEDS ORDERED: AZITHROMYCIN 500 MG in IV NORMAL SALINE 250ML 250 ML IV ONE (15:00)
[2021-07-16] MEDS ORDERED: cefTRIAXone IV Push 1 GM VIAL. IVP ONE (15:00)
[2021-07-16 15:06] LABS: BILIRUBIN,URINE NEGATIVE (NEG); CLARITY,URINE CLEAR; COLOR,URINE YELLOW; NITRITE,URINE POSITIVE (NEG); PH,URINE 5.5 (<5.0-8.0); PROTEIN,URINE NEGATIVE (NEG-TRACE); UROBILINOGEN,URINE 0.2 mg/dL (0.2 mg/dL)
[2021-07-16 15:24] LABS: HYALINE CASTS, URINE OCCASIONAL /HPF
[2021-07-16 15:26] LABS: WBC,URINE 20-40 /HPF (0-4)
[2021-07-16 15:27] LABS: BACTERIA,URINE MODERATE /HPF (0-FEW)
[2021-07-16 15:54] LABS: INFLUENZA A PATIENT NEGATIVE (NEGATIVE); INFLUENZA B PATIENT NEGATIVE (NEGATIVE)
[2021-07-16] MEDS ORDERED: ONDA4TAB12 PO (16:38)
[2021-07-16] MEDS ORDERED: CEPH500T PO (16:38)
[2021-07-16] MEDS ORDERED: AZIT250T6 PO (16:38)
[2021-07-16 16:53] VITALS: BP 131/73
--- NOTE | 2021-07-17 08:23 | EKG ---
[facility] [address] [place] [address] Test Date: 2021-07-16 Test Time: 13:26:43 Pat Name: BHASKAR PAIZ Department: Room: Gender: F Health Information Technologist: : 1955 Requested By: MALI CLEMENTE Order Number: [id number] Reading MD: Tal Graves Measurements Intervals [place] Rate: 109 P: 41 NE: 162 QRS: -1 QRSD: 82 T: 28 QT: 330 QTc: 446 Interpretive Statements SINUS TACHYCARDIA LEFTWARD AXIS Electronically Signed On 07-17-2021 14:01:10 CERTIFIED LEGAL INVESTIGATOR by Tal Graves
--- NOTE | 2021-07-18 07:47 | NUR ---
IP: Informed pt fo negative covid test. She verbalized understanding.
== END 2021-07-16 17:00 | disposition home or self-care (01) ==
LOC: ER 12:23
DX: J18.9 Pneumonia, unspecified organism (principal); N30.00 Acute cystitis without hematuria; Z20.822 Contact with and (suspected) exposure to COVID-19; R11.2 Nausea with vomiting, unspecified; I10 Essential (primary) hypertension; Z90.49 Acquired absence of other specified parts of digestive tract
CPT/HCPCS: 36415; 71275; 74177; 80053; 81001; 82553; 83690; 83735; 84484; 85007; 85025; 87077; 87086; 87186; 87428; 93005; 96361; 96365; 96375; 99285; C9803; J0456; J0696; J2405; J3490; J7030; J7050; Q9967; U0003